=== PATIENT | female | born 1935 | race Caucasian/White ===

== ENCOUNTER → 2017-01-31 | Outpatient (CLI) | payer MEDICARE, MEDICAID ==
[~2017-01-31] MED LIST: ARTIFICIAL TEAR15 ML OPHTH; CELEXA40 MG PO; DONEPEZIL HCL10 MG PO; ECOTRIN325 MG PO; FISH OIL 1,0001 EAC4 PO; FLONASE 50 MCG/16 GM NOSE; GLUCOSAMINE CH1 EAC3 PO; IMDUR30 MG PO; LIPITOR20 M1 PO; MIRALAX PO527 GM/BOT PO; MOBIC7.5 MG PO; NASONEX NASAL S17 GM NOSE; NEURONTIN300 MG PO; NORVASC5 MG PO; OXYGEN M-15 INH; PRILOSEC20 MG PO; PRINIVIL (ZESTR20 MG PO; RANEXA ER500 MG PO; SENNA8.6 MG PO; THERA-VITE W/ B1 TAB PO; TYLENOL325 MG PO; VITAMIN D1000 UNIT PO; ZOCOR40 MG PO
== END | disposition disaster alternative care site (69) ==
LOC: GOPD 01-16 16:30
PROC: 3E0R33Z Introduction of Anti-inflammatory into Spinal Canal, Percutaneous Approach (ICD-10-PCS; principal; 2017-01-31)
PROC: 3E0R3BZ Introduction of Anesthetic Agent into Spinal Canal, Percutaneous Approach (ICD-10-PCS; 2017-01-31)
DX: M54.5 Low back pain (principal)
CPT/HCPCS: J1040; J3301